=== PATIENT | female | born 1965 | race Caucasian/White ===

== ENCOUNTER → 2024-03-16 10:40 | Outpatient (BNVA) | payer OTHER, SELFPAY | PROVIDERS: PCP Nurse Practitioner; Visit Provider Internal Medicine Rheumatology | DX: R76.8 Other specified abnormal immunological findings in serum (principal); M25.50 Pain in unspecified joint; M25.511 Pain in right shoulder | CPT/HCPCS: 73030; 80076; 82565; 85025; 85651; 86140 ==

== ENCOUNTER → 2024-06-21 13:48 | Outpatient (BNVA) | payer OTHER, SELFPAY | PROVIDERS: PCP Nurse Practitioner; Visit Provider Internal Medicine Rheumatology | DX: Z79.899 Other long term (current) drug therapy (principal) | CPT/HCPCS: 80076; 82565; 85025; 85651; 86140 ==

== ENCOUNTER → 2024-09-08 10:39 | Outpatient (BNVA) | payer OTHER, SELFPAY | PROVIDERS: PCP Nurse Practitioner; Visit Provider Nurse Practitioner | DX: G56.01 Carpal tunnel syndrome, right upper limb (principal) | CPT/HCPCS: 73110 ==

== ENCOUNTER 2024-09-08 11:59 | Outpatient (CLI) | payer OTHER, SELFPAY | END 2024-09-08 12:00 | disposition home or self-care (01) | LOC: SPT 11:59 | PROVIDERS: PCP Nurse Practitioner; Visit Provider Nurse Practitioner | DX: G56.01 Carpal tunnel syndrome, right upper limb (principal) | CPT/HCPCS: L3908 ==

== ENCOUNTER → 2024-12-20 13:59 | Outpatient (BNVA) | payer OTHER, SELFPAY | PROVIDERS: PCP Nurse Practitioner; Visit Provider Internal Medicine Rheumatology | DX: Z79.899 Other long term (current) drug therapy (principal) | CPT/HCPCS: 80076; 82565; 85025; 85651; 86140 ==

== ENCOUNTER 2025-06-14 11:48 | Outpatient (CLI) | payer OTHER, SELFPAY ==
[2025-06-14 12:44] LABS: Hematocrit 34.7 % (36-47); Hemoglobin 10.80 g/dL (11.27-16.99); Mean Corpuscular HGB Conc 31.1 g/dL (30-55); Mean Corpuscular Hemoglobin 27.2 pg (27-33); Mean Corpuscular Volume 87.4 fl (85-98); Nucleated Red Blood Cells % 0 %; Platelet Count 315 10^3/cmm (157-399); Red Blood Count 3.97 10^6/uL (3.85-5.65); White Blood Count 7.16 10^3/uL (3.29-11.43)
[2025-06-14 13:21] LABS: Alanine Aminotransferase 13 U/L (0-33); Albumin Level 4.2 g/dL (3.5-5.2); Alkaline Phosphatase 56 U/L (35-105); Aspartate Amino Transferase 16 U/L (0-32); Globulin 3.7 g/dL (1.3-4.6); Total Protein 7.9 g/dL (6.6-8.7)
[2025-06-14 13:24] LABS: Hepatitis B Surface Antigen Non-Reactive (Nonreactive)
== END 2025-06-14 11:49 | disposition home or self-care (01) ==
LOC: LAB 11:48
PROVIDERS: PCP Nurse Practitioner; Visit Provider Internal Medicine Rheumatology
DX: Z79.899 Other long term (current) drug therapy (principal)
CPT/HCPCS: 36415; 80076; 82306; 82565; 82657; 85025; 85651; 86140; 86480; 86704; 86803; 87340